=== PATIENT | female | born 2000 | race Two or more races ===

== ENCOUNTER 2023-08-29 10:38 | Emergency (ER) | payer MEDICAID ==
[~2023-08-29] VITALS: Ht 162.6 cm; Wt 54.4 kg
[2023-08-29 12:15] VITALS: BP 114/70; PULSE 85; RESP 15; TEMP 98.3; O2SAT 98
[2023-08-29] MEDS ORDERED: LIDO2SOL26 MT (13:12)
[2023-08-29 13:52] LABS: Rapid Strep A Screen-Throat Negative
[2023-08-29 14:06] LABS: COVID19 ANTIGEN SOFIA FIA NEGATIVE (NEGATIVE)
== END 2023-08-29 13:13 | disposition home or self-care (01) ==
LOC: ER 10:38
DX: J06.9 Acute upper respiratory infection, unspecified (principal); R05.9 Cough, unspecified; R09.81 Nasal congestion; F15.90 Other stimulant use, unspecified, uncomplicated; Z20.822 Contact with and (suspected) exposure to COVID-19
CPT/HCPCS: 36415; 87070; 87426; 87880